=== PATIENT | female | born 1975 | race American Indian/Alaskan Native ===

== ENCOUNTER 2019-06-19 14:10 | Outpatient (CLI) | payer OTHER ==
--- NOTE | 2019-06-20 08:32 | Mammography Report ---
BILATERAL DIGITAL SCREENING MAMMOGRAM WITH CAD INDICATION: Routine screening mammography. History of a benign right stereotactic biopsy for calcific ations 08/12/2016 TECHNIQUE: Digital bilateral 2D mammography was obtained in the craniocaudal and mediolateral obliq ue projections. This examination was interpreted with the benefit of Computer-Aided Detection analysi s. COMPARISON: 05/27/2016 FINDINGS: Breast Density: The breasts are heterogeneously dense, which may obscure small masses. No mass, architectural distortion or suspicious calcifications. A right biopsy clip at 6:00 wallace armani cifications at the site of the previous stereotactic biopsy. Calcifications are decreased in number. IMPRESSION:No mammographic evidence of malignancy. BI-RADS Category 2: Benign. No mammographic evidence of malignancy. Recommend routine screening ma mmography in one year. A "normal" or negative report should not discourage follow up or biopsy of a clinically significant f inding. A written summary of these findings will be mailed to the patient. The patient will be entered into a mammography reporting system which will generate a reminder letter for the patient's next appointmen t at the appropriate interval. The [employer] recommends yearly mammograms starting at age 40 and continuing as l grey as a woman is in good health. Breast MRI is recommended for women with an approximate 20-25% or greater lifetime risk of breast cancer, including women with a strong family history of breast or ova obdulia cancer or who have been treated for Hodgkin's disease. Signer Name: Walter Hall MD Signed: 06/20/2019 8:28 AM Workstation Name: [id number]
== END 2019-06-19 14:11 | disposition home or self-care (01) ==
LOC: MAMMO 14:10
PROVIDERS: ATTEND Obstetrics & Gynecology
DX: Z12.31 Encounter for screening mammogram for malignant neoplasm of breast (principal)
CPT/HCPCS: 77067

== ENCOUNTER 2020-04-13 12:13 | Observation (INO) | payer BC, OTHER ==
--- NOTE | 2020-04-09 09:55 | History and Physical Report ---
History of Present Illness Date of examination: 04/09/20 History of present illness: Patient has been reassessed/reevaluated. H&P has been reviewed. No interval changes. This is a 44 years old female who presents with uterine fibroids. She complains of abdominal pressure, pelvic pain, pelvic pressure and menorrhagia, but denies abdominal pain and intermenstrual bleeding. Treatment tried to date includes myomectomy. Patient's work up has included PCP order pelvic ultrasound done on 11/14/2019 showing a 4.5cm posterior myoma and also a hypoechoic area in central uterus. She also underwent a hytsterosonogram on 12/12/2019 which revealed both an intramural myoma measuring 6cm and an intracavity myoma measuring 2 cm. Patient's symptoms when present disrupts her normal daily activities Patient desires definitive treatment Vital Signs: Patient Profile: 44 Years Old Female LMP: 03/16/2020 Height: 68 inches (172.72 cm) Weight: 182 pounds BMI: 27.67 Temp: 97.7 degrees F Menstrual History: LMP (date): 03/16/2020 Current Method of Contraception: None Date of Last Pap Smear: 06/06/2019 Past History : 3 Term Births: 3 Premature Births: 0 Living Children: 3 Para: 3 Mult. Births: 0 Prev : 0 Aborta: 0 Elect. Ab: 0 Spont. Ab: 0 Ectopics: 0 # 1 Delivery date: 1997 Weeks Gestation: FT labor: no Delivery type: Delivery location: [facility], [place] Infant Sex: Female weight: 7-14 # 2 Delivery date: 2001 Weeks Gestation: FT labor: no Delivery type: Delivery location: [facility] Sex: Female weight: 8-4 # 3 Delivery date: 07/18/2011 Weeks Gestation: 39 Delivery type: Anesthesia type: spinal Sex: male weight: 7.56 Comments: Previous myomectomy BTL done at [facility] [employer] [employer] History Operations: Myomectomy (2005) (07/18/2011) w/Tubal Ligation (07/18/2011) Abnormal PAP: positive; LEEP 95 Uterine Anomaly: positive fibroids Infection History HIV Risk Eval: no Personal hx. of genital herpes: yes Partner hx. of genital herpes: yes Hx of STD: chlamydia Past Medical History: Asthma Past Surgical History: Myomectomy (2005) (07/18/2011) w/Tubal Ligation (07/18/2011) Family History Summary: General Comments - FH: Family History of Diabetes Family History of Hypertension No Family History of Breast Cancer No Family History of Colon Cancer No Family History of Ovarvian Cancer Social History: Patient is no etoh, no illicit drug use, no tobacco use Risk Factors: Smoked Tobacco Use: Never smoker Smokeless Tobacco Use: Never Passive smoke exposure: no Drug use: no HIV high-risk behavior: no Caffeine use: <1 drinks per day Alcohol use: yes Type: occ Exercise: no Seatbelt use: 100 % PAP Smear History: Date of Last PAP Smear: 06/06/2019 Review of Systems General Denies fever, chills, sweats, anorexia, fatigue, weakness, malaise, weight loss and sleep disorder. Complains of menorrhagia, pelvic pain and painful periods. Denies vaginal discharge, incontinence, dysuria, hematuria, urinary frequency, amenorrhea, abnormal vaginal bleeding, genital sores, decreased libido, painful sex, urinary urgency, hot flashes, vaginal dryness, vaginal itching and vaginal odor. CV Denies chest pains, palpitations, syncope, dyspnea on exertion, orthopnea, PND and peripheral edema. Resp Denies cough, dyspnea at rest, excessive sputum, hemoptysis, wheezing and pleurisy. GI Denies nausea, vomiting, diarrhea, constipation, change in bowel habits, abdominal pain, melena, hematochezia, jaundice, gas/bloating, indigestion/heartburn, dysphagia and odynophagia. Breast Denies left breast lump, right breast lump, nipple discharge, bloody discharge from nipple, breast pain, abnormal mammogram and breast enlargement. Psych Denies depression, anxiety, irritability and mood swings. Past History Past Medical History: other (SEE HPI) Past Surgical History: , Other (SEE HPI) Social history: full code, other (SEE HPI) Family history: other (SEE HPI) Medications and Allergies Allergies Allergy/AdvReac Type Severity Reaction Status Date / Time shellfish derived Allergy Swelling Unverified 04/07/20 12:30 Home Medications Medication Instructions Recorded Confirmed Last Taken Type Albuterol Sulfate [Proventil Hfa] 2 puff IH Q4H 04/07/20 04/13/20 04/13/20 11:00 History Ferrous Sulfate [Iron 325 MG] 325 mg PO DAILY 04/07/20 04/13/20 04/12/20 09:00 History Amlodipine Bes/Olmesartan Med 1 tab PO DAILY 04/10/20 04/13/20 04/12/20 09:00 History [Amlodipine-Olmesartan 5-20 mg] Active Meds: Active Medications Fentanyl (Sublimaze) 100 mcg IV ONCE ONE Stop: 04/13/20 00:02 Lactated Ringer's (Lactated Ringers) 1,000 mls @ 100 mls/hr IV DIRECT GRIS Cefazolin Sodium (Ancef/Sterile Water 2 Gm/20 Ml) 2 gm in 20 mls @ 80 mls/hr IV PREOP NR; Protocol Stop: 04/13/20 23:59 Midazolam HCl (Versed) 2 mg IV PREOP NR Stop: 04/13/20 23:59 Review of Systems Constitutional: other (SEE HPI) Exam - Physical Exam Narrative exam: HEENT: normocephalic, no lesions or deformities Skin no significant abnormal lesions or rashes Breasts: skin/areolae normal, no nipple discharge, no erythema/warmth/tenderness, and axillae normal. Fibrocystic changes bilateral CV: regular, normal S1-S2, no murmur, no rub, no gallop Musculoskeletal: grossly normal ROM in joints, no joint tenderness or muscle weakness Neuro: no gross anomalities Extremities: normal alignment, no joint enlargement, crepitus, masses or tenderness; normal tone and strength [employer] Exams Vulva/Vagina: normal appearance, white discharge, lesions. No evidence of cystocele or rectocele. Cervix: normal appearance, no lesions. Uterus: normal position, midline, mobile Adnexae: no masses or tenderness Rectovaginal: exam defered Results - Labs CBC & Chem 7: 04/10/20 07:20 04/10/20 07:20 Assessment and Plan - Patient Problems (1) Intramural leiomyoma of uterus Status: Acute Plan to address problem: Diagnosis explained to patient . Questions answered. Discussed with patient various medical, surgical and radiological therapies common for treatment including expectant management, myomectomy hysterectomy and uterine artery embolization Patient desires definitive treatment Patient desires hysterectomy Discussed risks and benefits of laparotomy, laparoscopy, vaginal and robotic assisted approaches for hysterectomies Patient desires robotic assisted total hysterectomy.Patient desires robotic assisted total hysterectomy. Consent reviewed and signed . The risks and alternatives for this surgery were reviewed with the patient. Discuss the risks of the surgery including infection, bleeding possibly heavy enough to require a blood transfusion, possible damage to bowel, bladder or ureter. Patient understand that this surgery with make her sterile.Patient understands if her ovaries are removed she will become m enopausal. Also if unable to complete robitcally a laparotomy may required. Patient advised the small risks of spreading of malignancy if morcellator is used during the surgery patient understands and approve of use if necessary Patient is cosidering oophorectomy (2) Submucous leiomyoma of uterus Status: Acute Plan to address problem: Same as #1 (3) Pelvic and perineal pain Status: Acute (4) Metrorrhagia Status: Acute (5) Asthma Status: Acute
[2020-04-10 08:18] LABS: Basophils % (Auto) 0.9 % (0.0-1.8); Eosinophils % (Auto) 1.2 % (0.0-4.3); Hemoglobin 12.4 gm/dl (10.1-14.3); Lymphocytes % (Auto) 30.1 % (13.4-35.0); Mean Corpuscular HGB Conc 35 % (30-34); Mean Corpuscular Volume 93 fl (79-97); Monocytes # (Auto) 0.3 K/mm3 (0.0-0.8); Monocytes % (Auto) 9.7 % (0.0-7.3); Platelet Count 180 K/mm3 (140-440); Red Blood Count 3.88 M/mm3 (3.65-5.03); Red Cell Distribution Width 13.9 % (13.2-15.2)
[2020-04-10 08:51] LABS: BUN/Creatinine Ratio 8; Blood Urea Nitrogen 7 mg/dL (7-17); Calcium 9.4 mg/dL (8.4-10.2); Hemolysis Index 3
--- NOTE | 2020-04-13 10:44 | Anesthesia Consultation ---
Anesthesia Consult and Med Hx Date of service: 04/13/20 - Airway Anesthetic Teeth Evaluation: Good ROM Head & Neck: Adequate Mental/Hyoid Distance: Adequate Mallampati Class: Class II Intubation Access Assessment: Probably Good - Pulmonary Exam CTA: Yes - Cardiac Exam Cardiac Exam: RRR - Pre-Operative Health Status ASA Pre-Surgery Classification: ASA2 Proposed Anesthetic Plan: General Nerve Block: TAP Block - Pulmonary Hx Smoking: Yes (occasional hookah) Hx Asthma: Yes (last inhaler use 1 wk ago) Hx Respiratory Symptoms: No - Cardiovascular System Hx Hypertension: Yes Hx Heart Attack/AMI: No Hx Percutaneous Transluminal Coronary Angioplasty (PTCA): No - Central Nervous System CVA: No Hx Psychiatric Problems: No - Gastrointestinal Hx Gastroesophageal Reflux Disease: No - Endocrine Hx Renal Disease: No Hx Liver Disease: No Hx Insulin Dependent Diabetes: No Hx Non-Insulin Dependent Diabetes: No Hx Thyroid Disease: No - Hematic Hx Anemia: Yes (hx transfusion 11yrs ago) - Other Systems Hx Alcohol Use: Yes (Occas) Hx Obesity: No - Additional Comments Anesthesia Medical History Comments: Hx mild asthma exacerbation after GA for myomectomy requiring albuterol only. No anesthetic complications.
--- NOTE | 2020-04-13 10:45 | Anesthesia Day of Surgery ---
Anesthesia Day of Surgery - Day of Surgery Patient Examined: Yes Patient H&P Reviewed: Yes Patient is NPO: Yes
[~2020-04-13 12:13] MED LIST: BUPIVACAINE-EPINEPHRINE/PF 0.25%-1:200,000 (30 ML) VIAL INFILTRATI ONE; CELECOXIB 200 MG CAP PO NR; GABAPENTIN 300 MG CAP PO NR; HYDROmorphone 1 MG/1 ML INJ IV PRN; LACTATED RINGERS 1,000 ML IV SCH; MAGNESIUM OXIDE 400 MG TAB PO SCH; MIDAZOLAM 2 MG/2 ML INJ IV NR; ceFAZolin/Water 2 GM/20 ML 2 GM/20 ML SYRINGE IV NR; dexAMETHasone 4 MG/ML VIAL ONE; fentaNYL 100 MCG/2 ML INJ IV ONE; fentaNYL 100 MCG/2 ML INJ IV PRN
[2020-04-13] MEDS ORDERED: NEOMY 40 MG/POLYMYXIN B 200,000 UNITS/ML (GU) AMPULE IR ONE ×2 (12:37→13:43)
[2020-04-13] MEDS ORDERED: propofoL 200 MG/20 ML VIAL IV ONE (12:43)
[2020-04-13] MEDS ORDERED: HYDROmorphone 1 MG/1 ML INJ ONE (12:43)
[2020-04-13] MEDS ORDERED: GLYCOPYRROLATE 0.4 MG/2 ML INJ ONE (12:48)
[2020-04-13] MEDS ORDERED: LIDOCAINE MPF (2%) 20 MG/1 ML VIAL 5 ML ONE (12:48)
[2020-04-13] MEDS ORDERED: ROCURONIUM 50 MG/5 ML INJ IV ONE (12:48)
[2020-04-13] MEDS ORDERED: ONDANSETRON 4 MG/2 ML INJ ONE (12:48)
[2020-04-13] MEDS ORDERED: NEOSTIGMINE 10MG/10 ML INJ MDV ONE (12:48)
[2020-04-13] MEDS ORDERED: SODIUM CHLORIDE 0.9% IRR 1,500 ML BOTTLE IR ONE (13:43)
[2020-04-13] MEDS ORDERED: SODIUM CHLORIDE 0.9% IRRIG SOLN 2000 ML IR ONE (13:43)
[2020-04-13] MEDS ORDERED: METHYLENE BLUE 50 MG/10 ML AMP ONE (13:54)
[2020-04-13] MEDS ORDERED: ALBUTEROL 8.5 GM INHALATION IH SCH (15:00)
--- NOTE | 2020-04-13 15:03 | Operative Report ---
Operative Report Operative Report: Date of procedure: April 13, 2020 Pre-operative diagnosis: Symptomatic leiomyomata with menorrhalgia, dysmenorrhea and pelvic pain Post-operative diagnosis: Same plus severe pelvic adhesive disease Procedure name(s):Robotic Assisted Total Hysterectomy with bilateral salpingo- oophorectomy and lysis of adhesions Surgeon: Landon Vee MD Floor Installer: Cadence Lopez, certified diabetes educator Anesthesia: General EBL: 50 cc Complications: None Findings: Patient with a uterus approximately 12 to 14 weeks size with multiple leiomyomata with very thick adhesions to the anterior abdominal wall of her anterior uterine wall. Normal adnexa bilaterally Specimen(s): Uterus with cervix and bilateral fallopian tubes and ovaries Procedure: Patient was brought to the operating room where general anesthesia was induced without difficulty. Patient was placed in the dorsal lithotomy position. Prepped and draped in the usual sterile manner for robotic procedure. Castro catheter was placed without difficulty. Speculum was placed in the vagina. Patient with a very anterior cervix. A medium V-Care Uterine manipulator was placed without difficulty. Attention was now switched to the patient's abdomen. A vertical supra-umbilicus incision was made with a scalpel. A 10-12 trocar wa s placed in this incision under direct visualization. Intra-abdominal placement was verified with no evidence of internal organ damage. The patient pelvic findings were noted as above. It was determined that the patient was a candidate for robotic procedure. On both sides the umbilical incision at about 8 cm, incisions were made for robotic trocars. Each robotic trocar was placed under direct visualization with no evidence of internal organ damage. One 5 mm trocar was placed 2 fingerbreadths above the right iliac crest. A 5 mm camera was placed in the right lower quadrant trocar, the 10-12 trocar was removed and a [place] laparoscopic port closure device was placed through this incision under direct visualization with no evidence of internal organ damage. The camera was then replaced into this port. At this time the patient was placed in extreme Trendelenburg. The da Jazmine robot was then docked on the patient's left side. The trocars connected to the robot appropriately robotic instruments were placed under direct visualization no evidence of internal organ damage.. At this time I took my place under the robotic operating mcgarry. The thick adhesions between the uterus and the patient anterior abdominal wall were taken down sharply with the robotic scissors and bipolar instruments. This very thick adhesion was taken down with care not to damage the bladder below. Patient was given methylene blue intravenously in order to detect any damage to her urinary system. Throughout the case there was no internal dye detected. The lysis of the distal adhesion restored to normal anatomical space between the uterus and anterior abdominal wall. Starting on the patient's right side the ureter was identified and found to be out of the operative field. Using the r obotic vessel sealer the right ovarian vessels were cauterized and cut, the mesosalpinx under the fallopian tube were cauterized and cut starting from the distal end. Utero-ovarian complex was then cauterized and cut. This was followed by cauterizing and cutting the right round ligament. The broad ligament was then opened. The bladder flap was formed anteriorly. The posterior broad ligament was then excised. The uterine vessels were skeletonized. The ureter was clearly seen out of the operative field. The bladder was pushed away from the anterior uterus. The right uterine vessels were then cauterized and cut. Attention was then switched to the patient's left side. The same procedure was repeated on the left side with perform the cauterizing and cutting the left ovarian vessels, followed by isolating the uterine vessels cauterized and cutting and completing the bladder flap from the left side. At this time the uterus was appearing very cyanotic. After inspecting the bladder flap to insured no evidence of bladder injury, the colpotomy was then started. Incision started at 6:00 until the V-Care could be seen. This incision was extended from 6:00 to 9:00. Then from 6:00 to 3:00. Then from 9:00 to 12:00. This incision was extended from 3:00 to 12:00. At this time colpotomy was complete with no evidence of adjacent organ damage. The medical billing assistant remove the uterus from through the colpotomy site. The vaginal cuff was irrigated and cauterized and found to be hemostatic. The cuff was closed with roboticly using 0 V- Lock suture. This closure was hemostatic after irrigation and Bovie. All pedicles were inspected and found to be hemostatic. The ureters were identified bilaterally and found to be functioning normal. The patient had clear blue urine in the Castro catheter with no evidence of mixture with blood. Chance was placed on the cuff and pedicles for postoperative hemostasis . All instruments were then removed. The large trocar sites were closed in layers 2-0 Vicryl and 4-0 Monocryl. The smaller incisions were closed subcuticularly with 4-0 Monocryl. Dermabond was placed over the skin incisions. The patient tolerated procedure well. She was awakened in the operating room and accompanied to the recovery room in good condition.
[2020-04-13] MEDS ORDERED: LACTATED RINGERS 1,000 ML ONE (15:13)
[2020-04-13] MEDS ORDERED: ACETAMINOPHEN 325 MG TAB PO PRN (16:45)
[2020-04-13] MEDS ORDERED: D5W/LACTATED RINGERS 1,000 ML IV SCH (16:45)
[2020-04-13] MEDS ORDERED: ONDANSETRON 4 MG/2 ML INJ IV PRN (16:45)
--- NOTE | 2020-04-13 17:07 | Post Anesthesia Evaluation ---
- Post Anesthesia Evaluation Patient Participated: Yes Airway Patent: Yes Stable Respiratory Function: Yes Nausea/Vomiting: No Temp > 96.8F: Yes Pain Manageable: Yes Adequeate Hydration: Yes Anesthesia Complications: No
[2020-04-13] MEDS ORDERED: ESTRADIOL 0.1 MG/24 HR PATCH WEEKLY TD SCH (18:00)
--- NOTE | 2020-04-13 18:16 | Short Stay Summary ---
Short Stay Documentation Date of service: 04/13/20 - History Past Medical History: other (SEE HPI) Past Surgical History: , Other (SEE HPI) Social history: full code, other (SEE HPI) - Allergies and Medications Current Medications: Allergies shellfish derived Allergy (Verified 04/13/20 18:07) Swelling hives, throat close up. Home Medications Medication Instructions Recorded Confirmed Last Taken Type Albuterol Sulfate [Proventil Hfa] 2 puff IH Q4H 04/07/20 04/13/20 04/13/20 11:00 History Ferrous Sulfate [Iron 325 MG] 325 mg PO DAILY 04/07/20 04/13/20 04/12/20 09:00 History Amlodipine Bes/Olmesartan Med 1 tab PO DAILY 04/10/20 04/13/20 04/12/20 09:00 History [Amlodipine-Olmesartan 5-20 mg] Ibuprofen [Motrin 800 MG tab] 800 mg PO Q6H PRN #30 tablet 04/13/20 Unknown Rx oxyCODONE /ACETAMINOPHEN [Percocet 1 - 2 tab PO Q6HR PRN #20 tablet 04/13/20 Unknown Rx 5/325 mg] Active Medications Acetaminophen (Tylenol) 650 mg PO Q4H PRN PRN Reason: Pain MILD(1-3)/Fever >100.5/KOHLI Acetaminophen/Hydrocodone Bitart ([place] 5/325) 2 each PO Q6H PRN PRN Reason: Pain, Moderate (4-6) Albuterol (Proventil) 2.5 mg IH Q4HRT [facility] Amlodipine Besylate (Amlodipine) 5 mg PO QDAY [facility] Docusate Sodium (Colace) 100 mg PO BID [facility] Estradiol (Climara) 0.1 mg TD MoTh [facility] Last Admin: 04/13/20 18:10 Dose: 0.1 mg Documented by: Dextrose/Lactated Ringer's ([email or web address]) 1,000 mls @ 125 mls/hr IV DIRECT GRIS Last Admin: 04/13/20 18:07 Dose: 125 mls/hr Documented by: Cefazolin Sodium (Ancef/Ns 1 Gm/50 Ml) 1 gm in 50 mls @ 100 mls/hr IV Q8H [facility]; Protocol Stop: 04/14/20 04:29 Losartan Potassium (Cozaar) 50 mg PO QDAY GRIS Magnesium Hydroxide (Milk Of Magnesia) 30 ml PO Q4H PRN PRN Reason: Constipation Ondansetron HCl (Zofran) 4 mg IV Q8H PRN PRN Reason: Nausea And Vomiting - Discharge Diagnoses (1) Intramural leiomyoma of uterus Status: Acute (2) Submucous leiomyoma of uterus Status: Acute (3) Pelvic and perineal pain Status: Acute (4) Metrorrhagia Status: Acute (5) Asthma Status: Acute Short Stay Discharge Plan Follow up with: NEYDA WHEATLEY MD [Primary Care Provider] - 7 Days Prescriptions: Ibuprofen [Motrin 800 MG tab] 800 mg PO Q6H PRN #30 tablet PRN Reason: Pain oxyCODONE /ACETAMINOPHEN [Percocet 5/325 mg] 1 - 2 tab PO Q6HR PRN #20 tablet PRN Reason: Pain
--- NOTE | 2020-04-13 18:16 | Event Note ---
Date: 04/13/20 Discuss operative findings with patient and questions answered. Patient without fever. Will ambulate in halls this evening. Good urine output. We will continue routine postoperative care.
[2020-04-13] MEDS: HYDROcodone/ACETAMINOPHEN 5-325 MG TAB PO PRN (19:53)
[2020-04-13] MEDS: ceFAZolin/NS 1 GM/50 ML 1 GM/50 ML BAG IV SCH (19:54)
[2020-04-13] MEDS: DOCUSATE SODIUM 100 MG CAP PO SCH (23:09)
[2020-04-14] MEDS: ceFAZolin/NS 1 GM/50 ML 1 GM/50 ML BAG IV SCH (03:52)
[2020-04-14] MEDS: MAGNESIUM HYDROXIDE (MOM) ORAL LIQD UDC PO PRN ×2 (05:10→20:51)
[2020-04-14 05:46] LABS: Hematocrit 30.9 % (30.3-42.9); Hemoglobin 10.3 gm/dl (10.1-14.3)
[2020-04-14] MEDS: ALBUTEROL 2.5 MG/3 ML NEBU IH SCH ×5 (06:44→17:28)
--- NOTE | 2020-04-14 08:15 | Progress Note ---
Assessment and Plan - Patient Problems (1) Intramural leiomyoma of uterus Current Visit: No Status: Acute (2) Submucous leiomyoma of uterus Current Visit: No Status: Acute (3) Pelvic and perineal pain Current Visit: No Status: Acute (4) Metrorrhagia Current Visit: No Status: Acute (5) Asthma Current Visit: No Status: Acute (6) Status post hysterectomy Current Visit: Yes Status: Acute (7) Status post robot-assisted surgical procedure Current Visit: Yes Status: Acute (8) Vertigo Current Visit: Yes Status: Acute Plan to address problem: Will start medication and observe patient symptoms. We will also repeat H&H to ensure that the dizziness is not from anemia. Subjective Date of service: 04/14/20 Patient Reports: Positive: pain is less, tolerating liquids well, no flatus, afebrile, other (Vertigo) Narrative: Patient is complaining of vertigo this morning. Patient states she had a long history of vertigo but neglected to give that history. Patient states that she has been on medication in the past but has stopped it. Objective Vital Signs - 12hr 04/14/20 04/14/20 00:30 04:15 Temperature 98.8 F 98.3 F Pulse Rate 86 67 Respiratory 16 16 Rate Blood Pressure 96/67 96/57 [Left] - General physical appearance well developed, well nourished - Respiratory normal respiratory effort - Abdomen soft, tender (Appropriate postop), distended (Slightly), surgical scars (Healing well) - Neurologic other (Vertigo) - Psychiatric oriented to time, oriented to person, oriented to place, speech is normal, memory intact - Labs 04/14/20 04:15 04/10/20 07:20
[2020-04-14] MEDS ORDERED: MECLIZINE 12.5 MG TAB PO PRN (09:00)
[2020-04-14] MEDS: DOCUSATE SODIUM 100 MG CAP PO SCH ×2 (09:26→22:52)
[2020-04-14] MEDS: HYDROcodone/ACETAMINOPHEN 5-325 MG TAB PO PRN ×2 (09:26→20:50)
[2020-04-14] MEDS ORDERED: [UNRECOGNIZED DRUG - OTHER] PO SCH (10:00)
[2020-04-14] MEDS ORDERED: OLMESARTAN MED PO SCH (10:00)
[2020-04-14] MEDS ORDERED: FERROUS SULFATE 325 MG TAB PO SCH (10:00)
[2020-04-14] MEDS ORDERED: AMLODIPINE BES PO SCH (10:00)
[2020-04-14 11:18] LABS: Hemoglobin 10.6 gm/dl (10.1-14.3)
[2020-04-14] MEDS: amLODIPine 5 MG TAB PO SCH (11:28)
[2020-04-14] MEDS: LOSARTAN 50 MG TAB PO SCH (11:29)
--- NOTE | 2020-04-14 13:08 | Event Note ---
Date: 04/14/20 Patient states she feels better and more vertigo. Patient still says she feels a little weak when she stands. Patient's repeat hemoglobin hematocrit was higher than the previous level noted this morning. She denies any nausea or vomiting. Does complain of shoulder pain consistent with post laparoscopic procedure. Patient has not voided since removal of her Castro catheter. Patient does not feel the urge to go palpation abdomen is not consistent with a bladder distention. Patient without any IV fluids since 6 AM. We will give the patient IV fluid bolus and observe for spontaneous voiding and if not would administer straight catheterization. Patient antihypertensive meds were held due to low blood pressure earlier.
[2020-04-14] MEDS ORDERED: LACTATED RINGERS 500 ML IV SCH (14:00)
--- NOTE | 2020-04-14 18:19 | Progress Note ---
Assessment and Plan - Patient Problems (1) Intramural leiomyoma of uterus Current Visit: Yes Status: Acute (2) Submucous leiomyoma of uterus Current Visit: Yes Status: Acute (3) Pelvic and perineal pain Current Visit: Yes Status: Acute (4) Metrorrhagia Current Visit: Yes Status: Acute (5) Asthma Current Visit: Yes Status: Chronic Qualifiers: Asthma severity: mild (6) Status post hysterectomy Current Visit: Yes Status: Acute (7) Status post robot-assisted surgical procedure Current Visit: Yes Status: Acute (8) Vertigo Current Visit: Yes Status: Acute Plan to address problem: Patient states much improved after starting Antivert (9) Acute postoperative pain of abdomen Current Visit: Yes Status: Acute Plan to address problem: Patient without any nausea vomiting or fever but states that her abdominal pain is worsening with some distention. We will get abdominal x-ray series to rule out possible obstruction versus ileus. Also review possible hematoma under midline incision (10) Postoperative urinary retention Current Visit: Yes Status: Acute Plan to address problem: Patient did successfully void after the IV fluid bolus Subjective Patient Reports: Positive: still having pain, tolerating liquids well, voiding w/o difficulty, no flatus, no bowel movement, afebrile (Patient complaining of gas pain and a lump around the midline trocar incision). Negative: nausea, vomiting Objective Vital Signs - 12hr 04/14/20 04/14/20 04/14/20 08:40 09:26 09:39 Temperature 98.5 F Pulse Rate 69 Pulse Rate [ 74 Anterior Bilateral Throughout] Respiratory 18 18 Rate Respiratory 14 Rate [Anterior Bilateral Throughout] Blood Pressure Blood Pressure 103/60 [Left] Blood Pressure [Right] O2 Sat by Pulse Oximetry 04/14/20 04/14/20 04/14/20 09:50 10:00 11:00 Temperature Pulse Rate 64 Pulse Rate [ Anterior Bilateral Throughout] Respiratory Rate Respiratory Rate [Anterior Bilateral Throughout] Blood Pressure Blood Pressure [Left] Blood Pressure 102/61 [Right] O2 Sat by Pulse 99 99 Oximetry 04/14/20 04/14/20 04/14/20 11:28 11:29 12:10 Temperature 98 F Pulse Rate 64 64 75 Pulse Rate [ Anterior Bilateral Throughout] Respiratory 18 Rate Respiratory Rate [Anterior Bilateral Throughout] Blood Pressure 102/61 102/61 Blood Pressure [Left] Blood Pressure 107/63 [Right] O2 Sat by Pulse Oximetry 04/14/20 04/14/20 16:10 17:29 Temperature 98.3 F Pulse Rate 68 Pulse Rate [ 74 Anterior Bilateral Throughout] Respiratory 20 Rate Respiratory 12 Rate [Anterior Bilateral Throughout] Blood Pressure Blood Pressure [Left] Blood Pressure 112/64 [Right] O2 Sat by Pulse Oximetry - General physical appearance well developed, well nourished, moderate pain - Respiratory normal respiratory effort - Abdomen soft, tender, bowel sounds hypoactive, distended, surgical scars, other (There is hardening around the supra umbilical incision possible hematoma) - Psychiatric oriented to time - Labs 04/14/20 10:27 04/10/20 07:20
--- NOTE | 2020-04-14 21:06 | XRay Report ---
ABDOMEN 2 VIEWS INDICATION / CLINICAL INFORMATION: Postoperative evaluation, evaluate for obstruction.. 2 days status post robotic total hysterectomy an d bilateral salpingectomy. COMPARISON: None available. FINDINGS: TUBES / LINES: None. BOWEL GAS PATTERN: Multiple gas distended loops of bowel in the central abdomen, most of it appearing to be large bowel. No abnormal dilatation that is definitely of the small intestine is identified. FREE AIR / EXTRALUMINAL GAS: There is a moderate volume of pneumoperitoneum, but this is not unexpect ed in the recent postoperative setting. LUNGS: Mild bibasilar atelectatic changes related to low lung volumes. ADDITIONAL FINDINGS: No appreciable abdominal mass lesion or abnormal calcifications. IMPRESSION: 1. Pneumoperitoneum is present to be residual from surgery. 2. Gaseous distention in the large bowel with paucity of small bowel gas. No clear evidence of ileus or obstruction. Continued radiographic follow-up is recommended. Signer Name: Fracisco Sanchez MD Signed: 04/14/2020 9:02 PM Workstation Name: [id number]
--- NOTE | 2020-04-14 21:52 | Event Note ---
Date: 04/14/20 Patient states she feels better but still complaining of gas pain. Denies any nausea or vomiting. Abdominal x-ray report showed no evidence of obstruction and thought it was inconsistent with ileus. Discussed the findings with patient and significant other. Did discuss Dulcolax suppository for temporary relief of her gas. Patient desires to proceed we will continue to monitor.
[2020-04-15] MEDS: ALBUTEROL 2.5 MG/3 ML NEBU IH SCH ×4 (02:02→09:09)
--- NOTE | 2020-04-15 07:09 | Event Note ---
Date: 04/15/20 SUBJECTIVE: Patient awake states she feels a lot better. Patient did have some flatus and small bowel movement after suppository last night. Patient denies any nausea or vomiting. Patient desires discharge today OBJECTIVE: Vital signs stable patient is afebrile Abdomen is soft mildly distended. Less distention than before bowel sound s present Extremities nontender ASSESSMENT: Postop day 2-incisions well-healed Vertigo much improved Slow GI return-has improved PLAN: 1. We will allow regular breakfast patient tolerated well will discharge.
[2020-04-15] MEDS: MAGNESIUM HYDROXIDE (MOM) ORAL LIQD UDC PO PRN (07:24)
[2020-04-15] MEDS: HYDROcodone/ACETAMINOPHEN 5-325 MG TAB PO PRN (10:23)
[2020-04-15] MEDS: DOCUSATE SODIUM 100 MG CAP PO SCH (10:23)
[2020-04-15] MEDS: LOSARTAN 50 MG TAB PO SCH (10:24)
[2020-04-15] MEDS: amLODIPine 5 MG TAB PO SCH (11:35)
--- NOTE | 2020-04-15 12:23 | Discharge Summary ---
Providers - Providers Date of Admission: 04/13/20 14:56 Date of discharge: 04/15/20 Attending physician: MAXX BROUSSARD Primary care physician: NEYDA WHEATLEY Hospitalization Reason for admission: Symptomatic leiomyomata Condition: Good Pertinent studies: Abdominal x-ray Procedures: Robotic assisted total hysterectomy with bilateral salpingo-oophorectomy and lysis of adhesions Hospital course: Please see patient's history and physical and post operative note for details. Patient was admitted and underwent above procedure without complications. Her post operative course was complicated delaying her being able to spontaneously void, but patient did void successfully after IV fluid bolus. Also postoperatively the patient stay was complicated by aggravation of the patient's vertigo. Patient did not revealed her previous history of vertigo during her work-up, but symptoms started on postop day 1 patient states she had previously stopped her medication. After starting Antivert patient's symptoms did subside. Due to patient's vertigo her ability to ambulate was delayed and did not start ambulating to later postop day 1. Soon after her vertigo was subsided the patient had complaints of upper abdominal pain but denied any nausea or vomiting but states she could not eat properly. On exam the patient did have abdominal distention especially near her supra umbilicus incision. Postoperative day 1 ordered a abdominal x-ray which revealed no evidence of perforation are bowel obstruction. Patient since abdominal pain improved after the administration of Dulcolax suppository and the patient having flatus and small bowel movement. She was afebrile throughout her stay. Patient postoperative day 1 hematocrit was in an acceptable range. Patient had no orthostatic symptoms. Patient was tolerating regular diet and voiding without difficulty at time of discharge. P atient incision was healing well without evidence of infection. Disposition: DC-01 TO HOME OR SELFCARE Time spent for discharge: 25 minutes - Discharge Diagnoses (1) Intramural leiomyoma of uterus Status: Acute (2) Submucous leiomyoma of uterus Status: Acute (3) Pelvic and perineal pain Status: Acute (4) Metrorrhagia Status: Acute (5) Asthma Status: Chronic Qualifiers: Asthma severity: mild (6) Status post hysterectomy Status: Acute (7) Status post robot-assisted surgical procedure Status: Acute (8) Vertigo Status: Acute (9) Acute postoperative pain of abdomen Status: Acute (10) Postoperative urinary retention Status: Acute Core Measure Documentation - Palliative Care Palliative Care/ Comfort Measures: Not Applicable - Core Measures Any of the following diagnoses?: none Exam - Constitutional Vitals: Temp Pulse Resp BP Pulse Ox 98.0 F 90 19 116/75 98 04/15/20 09:15 04/15/20 11:36 04/15/20 10:23 04/15/20 11:36 04/15/20 09:15 General appearance: Present: no acute distress - Respiratory Respiratory effort: normal - Cardiovascular Rhythm: regular - Extremities Extremities: no ischemia, pulses intact - Abdominal General gastrointestinal: Present: soft, tender (Appropriately postop), distended (Slightly), other (Incisions healing well) Female genitourinary: Present: deferred - Rectal Rectal Exam: deferred - Integumentary Integumentary: Present: clear, warm, dry - Musculoskeletal Musculoskeletal: gait normal, strength equal bilaterally - Psychiatric Psychiatric: appropriate mood/affect, intact judgment & insight - Neurologic Neurologic: moves all extremities Plan Activity: advance as tolerated Diet: regular Wound: open to air, per your surgeon's advice Additional Instructions: Patient instructed no heavy lifting for 4 weeks. No intercourse for 8 weeks. Call office for fever, chills, nausea, vomiting or pain not controlled by pain medications. Ambulation is encouraged. Patient's call for heavy vaginal bleeding. Patient instructed to keep her scheduled post operative office appointment. Follow up with: NEYDA WHEATLEY MD [Primary Care Provider] - 7 Days Forms: [facility] Discharge Summary, Discharge Signature Page Prescriptions: Meclizine [Antivert] 12.5 mg PO BID PRN #30 tablet PRN Reason: Vertigo Estradiol [Minivelle 0.025mg/24hr] 1 each TD 2XW #8 patch.tdsw Ibuprofen [Motrin 800 MG tab] 800 mg PO Q6H PRN #30 tablet PRN Reason: Pain oxyCODONE /ACETAMINOPHEN [Percocet 5/325 mg] 1 - 2 tab PO Q6HR PRN #20 tablet PRN Reason: Pain
[2020-04-15 14:08] VITALS: BP 110/62
== END 2020-04-15 13:15 | disposition home or self-care (01) ==
LOC: OR 12:13 → OB 14:56
PROVIDERS: ADMIT Obstetrics & Gynecology; ATTEND Obstetrics & Gynecology
DX: Z03.818 Encounter for observation for suspected exposure to other biological agents ruled out (principal); D25.1 Intramural leiomyoma of uterus; D25.0 Submucous leiomyoma of uterus; N92.1 Excessive and frequent menstruation with irregular cycle; J45.909 Unspecified asthma, uncomplicated; R42 Dizziness and giddiness; R33.8 Other retention of urine; G89.18 Other acute postprocedural pain; N83.12 Corpus luteum cyst of left ovary; N83.11 Corpus luteum cyst of right ovary; Z79.899 Other long term (current) drug therapy; Z91.013 Allergy to seafood
CPT/HCPCS: 36415; 58573; 64450; 74019; 80048; 84703; 85014; 85018; 85025; 86850; 86900; 86901; 88307; 94640; 96361; 96365; 96366; 96375; A4217; G0378; J0690; J1100; J1170; J2250; J2405; J2704; J2710; J3010; J7120; J7121; Q9968; S2900; U0003

== ENCOUNTER 2020-06-01 05:39 | Day surgery (SDC) | payer BC ==
--- NOTE | 2020-05-31 16:34 | History and Physical Report ---
History of Present Illness Date of examination: 05/28/20 History of present illness: Patient has been reassessed/reevaluated. H&P has been reviewed. No interval changes. This is a 44-year-old black female status post robotic assisted hysterectomy on April 13, 2020. Patient has had bleeding from her vaginal cuff. Vaginal cuff is been examined several times and found to be intact but losing around the sutures still in place. Patient abdominal pelvic exam normal. Patient has had radiological studies that shows no elbow dense of internal organ damage and patient is been admitted for revision of her vaginal cuff. Height: 68 inches (172.72 cm) Weight: 179 pounds BMI: 27.21 Temp: 97.6 degrees F Past History : 3 Term Births: 3 Premature Births: 0 Living Children: 3 Para: 3 Mult. Births: 0 Prev : 0 Aborta: 0 Elect. Ab: 0 Spont. Ab: 0 Ectopics: 0 # 1 Delivery date: 1997 Weeks Gestation: FT labor: no Delivery type: Delivery location: [facility] Sex: Female weight: 7-14 # 2 Delivery date: 2001 Weeks Gestation: FT labor: no Delivery type: Delivery location: [facility] [place] Infant Sex: Female weight: 8-4 # 3 Delivery date: 07/18/2011 Weeks Gestation: 39 Delivery type: Anesthesia type: spinal Infant Sex: male weight: 7.56 Comments: Previous myomectomy BTL done at [facility] [employer] History Operations: Myomectomy (2005) (07/18/2011) w/Tubal Ligation (07/18/2011) Robotic Assisted Hysterectomy with Bilateral Salpingo-oophorectomy and Lysis of Adhesions (04/13/2020) Abnormal PAP: positive; LEEP 95 Uterine Anomaly: positive fibroids Infection History HIV Risk Eval: no Personal hx. of genital herpes: yes Partner hx. of genital herpes: yes Hx of STD: chlamydia Current Allergies (reviewed today): No known allergies Past Medical History: Asthma Past Surgical History: Myomectomy (2005) (07/18/2011) w/Tubal Ligation (07/18/2011) Robotic Assisted Laparoscopic Hysterectomy with Bilateral Salpingo- oophorectomy and Lysis of Adhesions (04/13/2020) Social History: Patient is no etoh, no illicit drug use, no tobacco use Risk Factors: Smoked Tobacco Use: Never smoker Smokeless Tobacco Use: Never Passive smoke exposure: no Drug use: no HIV high-risk behavior: no Caffeine use: <1 drinks per day Alcohol use: no Exercise: no Seatbelt use: 100 % Review of Systems General Denies fever, chills, sweats, anorexia, fatigue, weakness, malaise, weight loss and sleep disorder. Complains of abnormal vaginal bleeding. Denies vaginal discharge, incontinence, dysuria, hematuria, urinary frequency, amenorrhea, menorrhagia, pelvic pain, genital sores, decreased l ibido, painful periods, painful sex, urinary urgency, hot flashes, vaginal dryness, vaginal itching and vaginal odor. CV Denies chest pains, palpitations, syncope, dyspnea on exertion, orthopnea, PND and peripheral edema. Resp Denies cough, dyspnea at rest, excessive sputum, hemoptysis, wheezing and pleurisy. GI Denies nausea, vomiting, diarrhea, constipation, change in bowel habits, abdominal pain, melena, hematochezia, jaundice, gas/bloating, indigestion/heartburn, dysphagia and odynophagia. Breast Denies left breast lump, right breast lump, nipple discharge, bloody d ischarge from nipple, breast pain, abnormal mammogram and breast enlargement. Psych Denies depression, anxiety, irritability and mood swings. Past History Past Medical History: other (See HPI) Past Surgical History: (See HPI), hysterectomy, Other Social history: full code (See HPI) Family history: other Medications and Allergies Allergies Allergy/AdvReac Type Severity Reaction Status Date / Time shellfish derived Allergy Swelling Verified 05/28/20 14:54 Home Medications Medication Instructions Recorded Confirmed Last Taken Type Albuterol Sulfate [Proventil Hfa] 2 puff IH Q4H PRN 04/07/20 05/28/20 04/13/20 11:00 History Estradiol [Minivelle 0.025mg/24hr] 1 each TD 2XW #8 patch.tdsw 04/15/20 05/28/20 Unknown Rx Active Meds: Active Medications Celecoxib (Celebrex) 200 mg PO PREOP NR Stop: 06/01/20 23:59 Gabapentin (Gabapentin) 600 mg PO PREOP NR Stop: 06/01/20 23:59 Lactated Ringer's (Lactated Ringers) 1,000 mls @ 100 mls/hr IV DIRECT GRIS Stop: 06/01/20 23:59 Magnesium Oxide (Mag-Ox) 400 mg PO PREOP GRIS Stop: 06/01/20 23:59 Midazolam HCl (Versed) 2 mg IV PREOP NR Stop: 06/01/20 23:59 Review of Systems Constitutional: other (HEENT: normocephalic, no lesions or deformities ) Exam - Physical Exam Narrative exam: HEENT: normocephalic, no lesions or deformities Skin no significant abnormal lesions or rashes CV: regular, normal S1-S2, no murmur, no rub, no gallop Abdomen: Healing robotic surgical scars present without signs of infection, bowel sounds present throughout , softer with less distention Musculoskeletal: grossly normal ROM in joints, no joint tenderness or muscle weakness Neuro: no gross anomalities Extremities: normal alignment, no joint enlargement, crepitus, masses or tenderness; normal tone and strength [employer] Exams Vulva/Vagina: Healing vaginal cuff no signs of infection intact with oozing Cervix: Surgically absent Uterus: normal position, midline, mobile Adnexae: no masses or tenderness Rectovaginal: exam defered Assessment and Plan - Patient Problems (1) Disruption of external operation (surgical) wound, not elsewhere classified, initial encounter Current Visit: No Status: Acute Plan to address problem: Patient admitted for revision of vaginal cuff. Patient understand the risks of the surgery including bleeding, infection and possible damage to her bladder or bowel. Patient's questions answered patient desires to proceed. (2) Postoperative vaginal bleeding following genitourinary procedure Current Visit: No Status: Acute
[~2020-06-01 05:39] MED LIST changes: -BUPIVACAINE-EPINEPHRINE/PF 0.25%-1:200,000 (30 ML) VIAL INFILTRATI ONE; -CELECOXIB 200 MG CAP PO NR; -GABAPENTIN 300 MG CAP PO NR; -HYDROmorphone 1 MG/1 ML INJ IV PRN; -MAGNESIUM OXIDE 400 MG TAB PO SCH; -MIDAZOLAM 2 MG/2 ML INJ IV NR; -ceFAZolin/Water 2 GM/20 ML 2 GM/20 ML SYRINGE IV NR; -dexAMETHasone 4 MG/ML VIAL ONE; -fentaNYL 100 MCG/2 ML INJ IV ONE; -fentaNYL 100 MCG/2 ML INJ IV PRN
[2020-06-01] MEDS ORDERED: MIDAZOLAM 2 MG/2 ML INJ IV NR (06:00)
[2020-06-01] MEDS ORDERED: GABAPENTIN 300 MG CAP PO NR (06:00)
[2020-06-01] MEDS ORDERED: MAGNESIUM OXIDE 400 MG TAB PO SCH (06:00)
[2020-06-01] MEDS ORDERED: CELECOXIB 200 MG CAP PO NR (06:00)
[2020-06-01] MEDS ORDERED: amLODIPine 5 MG TAB PO NR (07:09)
[2020-06-01] MEDS ORDERED: BUPIVACAINE/PF (0.5%) 5 MG/1 ML 30 ML VIAL INFILTRATI ONE ×3 (07:20→08:06)
--- NOTE | 2020-06-01 07:27 | Anesthesia Consultation ---
Anesthesia Consult and Med Hx Date of service: 06/01/20 - Airway Anesthetic Teeth Evaluation: Good ROM Head & Neck: Adequate Mental/Hyoid Distance: Adequate Mallampati Class: Class III Intubation Access Assessment: Possibly Difficult - Pulmonary Exam CTA: Yes - Cardiac Exam Cardiac Exam: RRR - Pre-Operative Health Status ASA Pre-Surgery Classification: ASA3 Proposed Anesthetic Plan: General - Pulmonary Hx Smoking: Yes (occasional) Hx Asthma: Yes (last inhaler use >2 mos ago) Hx Respiratory Symptoms: No - Cardiovascular System Hx Hypertension: Yes (took herself off meds in March. BP elevated today so will give home meds.) Hx Heart Attack/AMI: No Hx Percutaneous Transluminal Coronary Angioplasty (PTCA): No Hx Cardia Arrhythmia: No - Central Nervous System CVA: No - Gastrointestinal Hx Gastroesophageal Reflux Disease: No - Endocrine Hx Renal Disease: No Hx Liver Disease: No Hx Insulin Dependent Diabetes: No Hx Non-Insulin Dependent Diabetes: No Hx Thyroid Disease: No - Other Systems Hx Obesity: No
--- NOTE | 2020-06-01 07:28 | Anesthesia Day of Surgery ---
Anesthesia Day of Surgery - Day of Surgery Patient Examined: Yes Patient H&P Reviewed: Yes Patient is NPO: Yes
[2020-06-01] MEDS ORDERED: fentaNYL 100 MCG/2 ML INJ ONE (07:36)
[2020-06-01] MEDS ORDERED: SUCCINYLCHOLINE CHLORIDE 200 MG/10 ML INJ MDV ONE (07:36)
[2020-06-01] MEDS ORDERED: GLYCOPYRROLATE 0.4 MG/2 ML INJ ONE (07:36)
[2020-06-01] MEDS ORDERED: ONDANSETRON 4 MG/2 ML INJ ONE (07:36)
[2020-06-01] MEDS ORDERED: LIDOCAINE MPF (2%) 20 MG/1 ML VIAL 5 ML ONE (07:36)
[2020-06-01] MEDS ORDERED: dexAMETHasone 20 MG/5 ML VIAL ONE (07:36)
[2020-06-01] MEDS ORDERED: ePHEDrine SULFATE 50 MG/1 ML INJ ONE (07:37)
[2020-06-01] MEDS ORDERED: propofoL 200 MG/20 ML VIAL IV ONE (07:37)
[2020-06-01] MEDS ORDERED: ESMOLOL 100 MG/10 ML INJ IV ONE (07:46)
[2020-06-01] MEDS ORDERED: hydrALAZINE 20 MG/1 ML INJ ONE (07:51)
[2020-06-01] MEDS ORDERED: SODIUM CHLORIDE 0.9% IRR 1,000 ML BOTTLE IR ONE (08:06)
[2020-06-01] MEDS ORDERED: SILVER NITRATE APPLICATOR 1 EA TP ONE ×2 (08:09)
[2020-06-01] MEDS ORDERED: HYDROmorphone 1 MG/1 ML INJ ONE (08:10)
--- NOTE | 2020-06-01 08:31 | Discharge Summary ---
Providers - Providers Date of discharge: 06/01/20 Attending physician: MAXX BROUSSARD Primary care physician: NEYDA WHEATLEY Hospitalization Reason for admission: Vaginal bleeding Condition: Good Procedures: Revision of vaginal cuff Hospital course: Patient was admitted underwent the above him procedure without any complications. Patient will be discharged with follow-up in office in 1-2 weeks for postop check. Disposition: - TO HOME OR SELFCARE - Discharge Diagnoses (1) Disruption of external operation (surgical) wound, not elsewhere classified, initial encounter Status: Acute (2) Postoperative vaginal bleeding following genitourinary procedure Status: Acute Core Measure Documentation - Palliative Care Palliative Care/ Comfort Measures: Not Applicable - Core Measures Any of the following diagnoses?: none Exam - Constitutional Vitals: Temp Pulse Resp BP Pulse Ox 98.5 F 70 18 183/119 99 06/01/20 06:20 06/01/20 07:30 06/01/20 07:30 06/01/20 07:30 06/01/20 06:20 General appearance: Present: no acute distress - Respiratory Respiratory effort: normal - Cardiovascular Rhythm: regular - Extremities Extremities: no ischemia - Abdominal General gastrointestinal: Present: soft, non-tender Female genitourinary: Present: normal - Rectal Rectal Exam: deferred - Integumentary Integumentary: Present: clear, warm, dry - Psychiatric Psychiatric: appropriate mood/affect, intact judgment & insight Plan Activity: no restrictions, other (No intercourse) Diet: regular Wound: open to air Follow up with: NEYDA WHEATLEY MD [Primary Care Provider] - 7 Days Prescriptions: Ibuprofen [Motrin 800 MG tab] 800 mg PO Q6H PRN #30 tablet PRN Reason: Pain Acetaminophen/Codeine [Tylenol #3] 1 tab PO Q4HR PRN #10 tablet PRN Reason: Pain DOXYCYCLINE Hyclate [Vibramycin CAP] 100 mg PO Q12HR #14 capsule
--- NOTE | 2020-06-01 08:36 | Operative Report ---
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 Did have some bleeding from friable vaginal tissue along the suture line from manipulation during the surgery Specimen(s): None Procedure: Patient brought in operating room where anesthesia was induced without any difficulty. Patient was placed in the dorsolithotomy position. She was prepped and dressed in usual sterile fashion. After timeout, red rubber catheter was used to empty her urinary bladder. Weighted speculum was placed in the vagina. The findings noted above. Vaginal cuff was palpated and was intact. Sutures were still present. Attempted to cut the sutures due to probably causing irritation of vagina. Sutures remained in place after cutting with the vaginal cuff still intact. Cauterized the oozing areas around the suture line. Did place additional [id number] suture with 3-0 Vicryl to oversew the vaginal cuff. Silver nitrate was placed along the suture line. Patient had no active bleeding. Marcaine was then placed along the suture line for postoperative pain relief. All instruments were removed. Patient was awakened operating room and come to recovery room in good condition.
[2020-06-01] MEDS: HYDROmorphone 1 MG/1 ML INJ IV PRN ×2 (08:58→09:10)
[2020-06-01 09:36] VITALS: BP 132/88
[2020-06-01] MEDS ORDERED: IBUPROFEN 800 MG TAB PO PRN (10:00)
== END 2020-06-01 05:40 | disposition home or self-care (01) ==
LOC: OR 05:39
PROVIDERS: ATTEND Obstetrics & Gynecology
DX: N93.8 Other specified abnormal uterine and vaginal bleeding (principal); J45.909 Unspecified asthma, uncomplicated; I10 Essential (primary) hypertension; Z91.013 Allergy to seafood; Z79.899 Other long term (current) drug therapy; Z90.710 Acquired absence of both cervix and uterus; Z98.890 Other specified postprocedural states; Z98.891 History of uterine scar from previous surgery; Z71.89 Other specified counseling; Z86.2 Personal history of diseases of the blood and blood-forming organs and certain disorders involving the immune mechanism
CPT/HCPCS: 58999; J0330; J0360; J1100; J1170; J2250; J2405; J2704; J3010; J7120

== ENCOUNTER 2021-02-10 16:03 | Outpatient (CLI) | payer BC ==
--- NOTE | 2021-02-10 17:06 | Mammography Report ---
DIGITAL SCREENING MAMMOGRAM WITH CAD, 02/10/2021 CLINICAL INFORMATION / INDICATION: Routine screening mammography. SCREENING MAMMO TECHNIQUE: Digital bilateral 2D mammography was obtained in the craniocaudal and mediolateral obliqu e projections. This examination was interpreted with the benefit of Computer-Aided Detection analysis . COMPARISON: Prior mammograms 06/19/2019, 08/12/2016, and 05/27/2016 FINDINGS: Breast Density: There are scattered areas of fibroglandular density. No dominant mass, suspicious calcifications, or architectural distortion in the left breast. There are stable benign-appearing calcifications with associated biopsy clip in the central right donna ast, middle depth. There is a 2 cm focal asymmetric density in the central right breast, middle depth , just slightly lateral and inferior to the plane of the nipple. This is more prominent compared with prior examinations. This density is located approximately 1.5 cm anterior to the previously biopsied calcifications. IMPRESSION: 1. A focal asymmetric density in the right breast requires further evaluation with targeted ultrasoun d and additional views if needed. Follow up recommendation: Ultrasound BI-RADS Category 0: Incomplete. Needs additional imaging evaluation and/or prior mammograms for lora feldman. A "normal" or negative report should not discourage follow up or biopsy of a clinically significant f inding. A written summary of these findings will be mailed to the patient. The patient will be entered into a mammography reporting system which will generate a reminder letter for the patient's next appointmen t at the appropriate interval. The [employer] recommends yearly mammograms starting at age 40 and continuing as l grey as a woman is in good health. Breast MRI is recommended for women with an approximate 20-25% or greater lifetime risk of breast cancer, including women with a strong family history of breast or ova obdulia cancer or who have been treated for Hodgkin's disease. Signer Name: Georgia Nolan MD Signed: 02/10/2021 5:02 PM Workstation Name: [id number]
== END 2021-02-10 16:04 | disposition home or self-care (01) ==
LOC: SPVWC 16:03
PROVIDERS: ATTEND Family Medicine
DX: Z12.31 Encounter for screening mammogram for malignant neoplasm of breast (principal); N64.89 Other specified disorders of breast
CPT/HCPCS: 77067

== ENCOUNTER 2021-05-12 14:38 | Outpatient (CLI) | payer BC ==
--- NOTE | 2021-05-12 17:36 | Ultrasound Report ---
RIGHT DIGITAL DIAGNOSTIC MAMMOGRAM WITH CAD , 05/12/2021 RIGHT LIMITED BREAST ULTRASOUND CLINICAL INFORMATION / INDICATION: Abnormal right screening mammogram. TECHNIQUE: Digital right mammographic imaging was performed. Spot compression views were obtained. Li mited ultrasound was performed. This examination was interpreted with the benefit of Computer-Aided D etection (CAD) analysis. COMPARISON: Recent screening mammogram 02/10/2021 as well as mammograms dating back to 05/27/2016 FINDINGS: Breast Density: There are scattered areas of fibroglandular density. MAMMOGRAPHIC FINDINGS: The focal asymmetric density in the right breast at approximately 6-7:00 appea rs less prominent on spot compression views and grossly unchanged dating back to 2016 mammograms.. ULTRASOUND FINDINGS: Targeted ultrasound evaluation was performed of the area of interest. Sonographic evaluation of the right breast does not find sonographic correlate for the focal asymmetr ic density in the inferior right breast noted on recent mammograms. However this density is felt to b e stable dating back to 2015 and is therefore considered benign. Additionally, there is a small benign-appearing oval solid mass in the breast at 10:00, 3 cm from nip ple, most likely representing small fibroadenoma. This mass has been present on prior mammograms dati ng back to 2015 and is therefore benign. IMPRESSION: No mammographic or sonographic evidence of malignancy. Stable findings in the right breas t as outlined above. No further evaluation is required at this time. Follow up recommendation: Routine yearly BI-RADS Category 2: Benign. A "normal" or negative report should not discourage follow up or biopsy of a clinically significant f inding. A written summary of these findings will be mailed to the patient. The patient will be entered into a mammography reporting system which will generate a reminder letter for the patient's next appointmen t at the appropriate interval. According to the [employer], yearly mammograms are recommended starting at age 40 and continuing as long as a woman is in good health. Breast MRI is recommended for women with an asha roximately 20-25% or greater lifetime risk of breast cancer, including women with a strong family his tory of breast or ovarian cancer and women who have been treated for Hodgkin's disease. Signer Name: Kylie Dee MD Signed: 05/12/2021 5:32 PM Workstation Name: [email or web address]
== END 2021-05-12 14:39 | disposition home or self-care (01) ==
LOC: SPVWC 14:38
PROVIDERS: ATTEND Family Medicine
DX: N63.13 Unspecified lump in the right breast, lower outer quadrant (principal); R92.2 Inconclusive mammogram; R92.8 Other abnormal and inconclusive findings on diagnostic imaging of breast